=== PATIENT | female | born 1945 | race Asian ===

== ENCOUNTER 2018-10-20 09:01 | Day surgery (SDC) | payer MEDICARE, OTHER, SELFPAY ==
--- NOTE | 2018-10-17 13:14 | PM.PREOP ---
Pre-operative Note Interval Note History & Physical reviewed/Exam performed by Physician: Yes Changes to H&P: No
--- NOTE | 2018-10-17 13:14 | PM.OP.1 ---
Operative Date/Time/Diagnoses Date of procedure: 10/20/18 Time of procedure: 10:45 Procedure & Clinicians Procedure: Preoperative diagnoses:1. Complex surgery with use of capsular dye.2. Mature or advanced nuclear sclerotic and cortical cataract with poor visibility of the anterior capsule increasing surgical risks of complications.Preoperative diagnoses:1. Advanced to mature nuclear sclerotic and cortical cataract.Postoperative diagnoses 2. Glaucoma suspect. 1. Complex surgery with use of capsular dye and placement of a posterior chamber intraocular lens implant.Surgeon: Betty Cutler MD Complications: none Specimen: None Implant: ZCBOO +25.0Blood loss: None Anesthesia: Retrobulbar with monitored standby.Description of procedure:Dictated by: Betty Cutler MD Copy to: [facility] Postoperative diagnoses:1. Cataract removed with use of capsular dye with placement of a posterior chamber intraocular lens. Procedure: Phacoemulsification with posterior chamber intraocular lens implant Surgeon: Betty Cutler MD Blood loss: None Anesthesia: Retrobulbar with monitored standby. Description of procedure: Patient has presented with decreased vision due to cataract which is affecting activities of daily living. The patient wants surgery to improve vision. She is with advanced cortical cataract and poor red reflex. She is also a glaucoma suspect with a narrow anterior chamber and shorter axial length. She will need capsular dye to improve visibility. The patient was taken to the operating room and given IV sedation. A retrobulbar block consisting of 6 cc of 2% xylocaine without epinephrine mixed half and half with 0.5% Marcaine with 1 cc of hyaluronidase added is placed between the medial and lateral 1/3 of the inferior orbital rim. Lid akinesia is obtain with 1% xylocaine with epinephrine infiltrated along the lid margin. The eye is manually massaged for 30 sec, prepped using Betadine solution, and draped in the usual sterile fashion.Temporal approach was made, a 1 mm side-port incision was performed 90 degrees from the planned corneal wound. Phenylephrine 1.5% mixed with 1% xylocaine 0.2 cc was placed into the anterior chamber. An air bubble was placed and Visudyne dye was placed to improve visibility of the anterior capsule. The dye was irrigated out to reduce bubbles. Viscoat followed by Healon was then placed. A 2.6 mm clear incision with a 2.6 mm blade was placed. A 360 degree capsulorrhexis style capsulotomy was then performed with a cystitome needle on a [employer]. Hydrodelineation and hydrodissection were performed. The phacoemulsification unit is introduced, and sculpting used to groove the central lens. It is then removed in chopping mode. Epi nucleus is removed with epinuclear mode and irrigation aspiration was used to remove the peripheral cortex. The posterior capsule is polished. The intraocular lens is selected, inspected, power confirmed, and placed in the posterior chamber. The pupil was constricted with Miostat. The wound was stromally hydrated and tested for leaks, there was none and was left sutureless. Vigamox 0.1 cc was placed into the anterior chamber. Kenalog 0.2 cc was placed in the superior subconjunctival space. A drop of antibiotic and was placed and the eye was patched and shielded. The patient was stable and returned to the recovery room in excellent condition.Dictated by: CARISSA Napieropy to: [facility]
--- NOTE | 2018-10-17 13:21 | P.OP_ITS ---
Operative Date/Time/Diagnoses Date of procedure: 10/20/18 Time of procedure: 10:45 Procedure & Clinicians Procedure: Preoperative diagnoses:1. Complex surgery with use of capsular dye.2. Mature or advanced nuclear sclerotic and cortical cataract with poor visibility of the anterior capsule increasing surgical risks of complications.Preoperative diagnoses:1. Advanced to mature nuclear sclerotic and cortical cataract.Postoperative diagnoses 2. Glaucoma suspect. 1. Complex surgery with use of capsular dye and placement of a posterior chamber intraocular lens implant.Surgeon: Betty Cutler MD Complications: none Specimen : None Implant: ZCBOO +25.0Blood loss: None Anesthesia: Retrobulbar with monitored standby.Description of procedure:Dictated by: Betty Cutler MD Copy to : [facility] Postoperative diagnoses:1. Cataract removed with use of capsular dye with placement of a posterior chamber intraocular lens. Procedure: Phacoemulsification with posterior chamber intraocular lens implant Surgeon: Betty Cutler MD Blood loss: None Anesthesia : Retrobulbar with monitored standby. Description of procedure: Patient has presented with decreased vision due to cataract which is affecting activities of daily living. The patient wants surgery to improve vision. She is with advanced cortical cataract and poor red reflex. She is also a glaucoma suspect with a narrow anterior chamber and shorter axial length. She will need capsular dye to improve visibility. The patient was taken to the operating room and given IV sedation. A retrobulbar block consisting of 6 cc of 2% xylocaine without epinephrine mixed half and half with 0.5% Marcaine with 1 cc of hyaluronidase added is placed between the medial and lateral 1/3 of the inferior orbital rim. Lid akinesia is obtain with 1% xylocaine with epinephrine infiltrated along the lid margin. The eye is manually massaged for 30 sec, prepped using Betadine solution, and draped in the usual sterile fashion.Temporal approach was made, a 1 mm side-port incision was performed 90 degrees from the planned corneal wound. Phenylephrine 1.5% mixed with 1% xylocaine 0.2 cc was placed into the anterior chamber. An air bubble was placed and Visudyne dye was placed to improve visibility of the anterior capsule. The dye was irrigated out to reduce bubbles. Viscoat followed by Healon was then placed. A 2.6 mm clear incision with a 2.6 mm blade was placed. A 360 degree capsulorrhexis style capsulotomy was then performed with a cystitome needle on a [employer]. Hydrodelineation and hydrodissection were performed. The phacoemulsification unit is introduced, and sculpting used to groove the central lens. It is then removed in chopping mode. Epi nucleus is removed with epinuclear mode and irrigation aspiration was used to remove the peripheral cortex. The posterior capsule is polished. The intraocular lens is selected, inspected, power confirmed, and placed in the posterior chamber. The pupil was constricted with Miostat. The wound was stromally hydrated and tested for leaks , there was none and was left sutureless. Vigamox 0.1 cc was placed into the anterior chamber. Kenalog 0.2 cc was placed in the superior subconjunctival space. A drop of antibiotic and was placed and the eye was patched and shielded. The patient was stable and returned to the recovery room in excellent condition.Dictated by: CARISSA Napieropy to: [facility]
[2018-10-20] MEDS: PROPARACAINE 0.5% OPHTH SOL 2 DROPS EYE-OP (09:15)
[2018-10-20 09:20] VITALS: BP 140/81; PULSE 80; RESP 16; TEMP 36.6; O2SAT 98; BMI 27.2
[2018-10-20] MEDS: CATARACT EYE COMPOUND (10 DROPS/SYRINGE) 3 DROPS EYE-OP ×3 (09:20→09:30)
[2018-10-20] MEDS: BALANCED SALT IRRIG SOLN NO.2 15 ML IRR (11:10)
[2018-10-20] MEDS: CARBACHOL 1.5 ML VIAL INJ (11:10)
[2018-10-20] MEDS: HYALURONATE SODIUM 10 MG/ML SYRINGE INJ (11:10)
[2018-10-20] MEDS: CHONDROIDTIN/SOD HYALURONATE 1.05 ML SYRINGE INTRAOCULA (11:10)
[2018-10-20] MEDS: LIDOCAINE 1% W/EPI INJ 20 ML INJ (11:10)
[2018-10-20] MEDS: NEOMYCIN/POLY/DEX OPHTH OINT 1 APPLIC EYE-LEFT (11:11)
[2018-10-20] MEDS: MOXIFLOXACIN OPHTH DROPS 3 ML BOTTLE 2 DROPS INJ (11:11)
[2018-10-20] MEDS: OFLOXACIN 0.3% OPHTH 5 ML 2 DROPS EYE-LEFT (11:12)
[2018-10-20] MEDS: TRIAMCINOLONE 50 MG/5 ML VIAL INJ (11:12)
[2018-10-20] MEDS: PHENYLEPHRINE/LIDOCAINE VIAL (OR) 0.2 ML EYE-OP (11:12)
[2018-10-20] MEDS: TRYPAN BLUE 0.5 ML SYRINGE INJ (11:13)
[2018-10-20] MEDS: BALANCED SALT IRRIG SOLN NO.2 500 ML, EPINEPHrine 1 MG IRR (11:13)
[2018-10-20] MEDS: LIDOCAINE 2% 4 ML, BUPIVACAINE 0.5% (PF) 4 ML, HYALURONIDASE 150 UNIT INJ (11:15)
[2018-10-20 11:39] VITALS: BP 149/73; PULSE 69; RESP 15; TEMP 35.9; O2SAT 97
== END 2018-10-20 11:51 | disposition home or self-care (01) ==
PROVIDERS: Visit Provider Ophthalmology
PROC: (CPT 66982; principal; 2018-10-20 10:45)
DX: H25.12 Age-related nuclear cataract, left eye (principal); I10 Essential (primary) hypertension; E78.5 Hyperlipidemia, unspecified; H40.002 Preglaucoma, unspecified, left eye
CPT/HCPCS: 66982; J0171; J2250; J2704; J3010; J3301; J3470

== ENCOUNTER 2018-11-03 07:30 | Day surgery (SDC) | payer MEDICARE, OTHER, SELFPAY ==
--- NOTE | 2018-10-28 08:56 | PM.PREOP ---
Pre-operative Note Interval Note History & Physical reviewed/Exam performed by Physician: Yes Changes to H&P: No
--- NOTE | 2018-11-02 14:34 | PM.OP.1 ---
Operative Date/Time/Diagnoses Date of procedure: 11/03/18 Time of procedure: 08:45 Procedure & Clinicians Procedure: Preoperative diagnoses: 1. Complex surgery with use of capsular dye. 2. Mature or advanced nuclear sclerotic and cortical cataract with poor visibility of the anterior capsule increasing surgical risks of complications. Postoperative diagnoses: 1. Complex surgery with use of capsular dye and placement of a posterior chamber intraocular lens implant. Surgeon: Betty Cutler MD Complications: none Specimen: None Implant: ZCBOO+24.0 Blood loss: None Anesthesia: Retrobulbar with monitored standby. Description of procedure: Dictated by: Betyt Cutler MD Copy to: [facility] Post operative diagnoses: 1. Right advanced cataract removed with use of capsular dye with placement of a posterior chamber intraocular lens. Procedure: Phacoemulsification with posterior chamber intraocular lens implant Surgeon: Betty Cutler MD Blood loss: None Anesthesia: Retrobulbar with monitored standby Description of procedure: Patient has presented with decreased vision due to cataract which is affecting activities of daily living. The patient wants surgery to improve vision. Poor visibility was present due to cortical opacities through the visual axis and red reflex. The patient was taken to the operating room and given IV sedation. A retrobulbar block consisting of 6 cc of 2% xylocaine without epinephrine mixed half and half with 0.5% Marcaine with 1 cc of hyaluronidase added is placed between the medial and lateral 1/3 of the inferior orbital rim. Lid akinesia is obtain with 1% xylocaine with epinephrine infiltrated along the lid margin. The eye is manually massaged for 30 sec, prepped using Betadine solution, and draped in the usual sterile fashion. Temporal approach was made, a 1 mm side-port incision was performed 90 degrees from the planned corneal wound. Phenylephrine 1.5% mixed with 1% xylocaine 0.2 cc was placed into the anterior chamber. An air bubble was placed and Visudyne dye was placed to improve visibility of the anterior capsule. The dye was irrigated out to reduce bubbles. Viscoat followed by Rosangela was then placed. A 2.6 mm clear incision with a 2.6 mm blade was placed. A 360 degree capsulorrhexis style capsulotomy was then performed with a cystitome needle on a Healon. Hydrodelineation and hydrodissection were performed. The phacoemulsification unit is introduced, and sculpting used to groove the central lens. It is then removed in chopping mode. Epi nucleus is removed with epinuclear mode and irrigation aspiration was used to remove the peripheral cortex. The posterior capsule is polished. The intraocular lens is selected, inspected, power confirmed, and placed in the posterior chamber. The pupil was constricted with Miostat. The wound was stromally hydrated and tested for leaks, there was none and was left sutureless. Vigamox 0.1 cc was placed into the anterior chamber. Kenalog 0.2 cc was placed in the superior subconjunctival space. A drop of antibiotic and was placed and the eye was patched and shielded. The patient was stable and returned to the recovery room in excellent condition. Dictated by: Betty Cutler MD Copy to: [facility]
[2018-11-03 08:00] VITALS: BMI 27.0
[2018-11-03] MEDS: PROPARACAINE 0.5% OPHTH SOL 2 DROPS EYE-OP (08:00)
[2018-11-03] MEDS: CATARACT EYE COMPOUND (10 DROPS/SYRINGE) 3 DROPS EYE-OP ×2 (08:05→08:16)
[2018-11-03 08:13] VITALS: BP 159/77; PULSE 72; RESP 15; TEMP 36.1; O2SAT 97
[2018-11-03] MEDS: CARBACHOL 1.5 ML VIAL INJ (09:10)
[2018-11-03] MEDS: BALANCED SALT IRRIG SOLN NO.2 15 ML IRR (09:10)
[2018-11-03] MEDS: CHONDROIDTIN/SOD HYALURONATE 1.05 ML SYRINGE INTRAOCULA (09:10)
[2018-11-03] MEDS: MOXIFLOXACIN OPHTH DROPS 3 ML BOTTLE 2 DROPS INJ (09:11)
[2018-11-03] MEDS: HYALURONATE SODIUM 10 MG/ML SYRINGE INJ (09:11)
[2018-11-03] MEDS: LIDOCAINE 1% W/EPI INJ 20 ML INJ (09:11)
[2018-11-03] MEDS: PHENYLEPHRINE/LIDOCAINE VIAL (OR) 0.2 ML EYE-OP (09:12)
[2018-11-03] MEDS: OFLOXACIN 0.3% OPHTH 5 ML 2 DROPS EYE-RIGHT (09:12)
[2018-11-03] MEDS: NEOMYCIN/POLY/DEX OPHTH OINT 1 APPLIC EYE-RIGHT (09:12)
[2018-11-03] MEDS: TRIAMCINOLONE 50 MG/5 ML VIAL INJ (09:13)
[2018-11-03] MEDS: TRYPAN BLUE 0.5 ML SYRINGE INJ (09:13)
[2018-11-03] MEDS: BALANCED SALT IRRIG SOLN NO.2 500 ML, EPINEPHrine 1 MG IRR (09:17)
[2018-11-03] MEDS: LIDOCAINE 2% 4 ML, BUPIVACAINE 0.5% (PF) 4 ML, HYALURONIDASE 150 UNIT INJ (09:17)
[2018-11-03 09:34] VITALS: BP 124/75; PULSE 79; RESP 15; TEMP 36.3; O2SAT 93
== END 2018-11-03 09:44 | disposition home or self-care (01) ==
LOC: OR 07:32
PROVIDERS: PCP Nurse Practitioner Gerontology; Visit Provider Ophthalmology
PROC: (CPT 66982; principal; 2018-11-03 08:45)
DX: H25.11 Age-related nuclear cataract, right eye (principal); I10 Essential (primary) hypertension; E78.5 Hyperlipidemia, unspecified
CPT/HCPCS: 66982; J0171; J2250; J2704; J3010; J3301; J3470

== ENCOUNTER → 2021-12-19 08:42 | Outpatient (CLI) | payer MEDICARE, OTHER, SELFPAY ==
--- NOTE | 2021-12-19 | DI.MG.S_ITS ---
UNILATERAL LEFT DIGITAL DIAGNOSTIC MAMMOGRAM 3D/2D WITH ADDITIONAL VIEWS: 12/19/2021 CLINICAL: Additional evaluation requested from prior study. Comparison is made to exams dated: 10/21/2021 mammogram, 10/26/2013 mammogram, and 10/27/2012 mammogram - [facility]. The tissue of left breast is heterogeneously dense. This may lower the sensitivity of mammography. The previously seen asymmetry in the left breast disperses on spot compression views, compatible with normal fibroglandular breast tissue. No significant masses, calcifications, or other findings are seen in the breast. IMPRESSION: NEGATIVE There is no mammographic evidence of malignancy. Return to annual mammogram screening schedule is recommended. This exam was interpreted at Station ID: [id number]. NOTE: For mammograms, a report in lay terms will be sent to the patient. Approximately 15% of breast malignancies will not be visualized mammographically. In the management of a palpable breast mass, a negative mammogram must not discourage biopsy of a clinically suspicious lesion. Electronically Signed By: Anuel zhao/[email or web address]:12/19/2021 09:53:25 letter sent: Normal Exam ACR BI-RADS Category 1: Negative [id number]
== END ==
PROVIDERS: PCP Nurse Practitioner; Referring Provider Nurse Practitioner; Visit Provider Nurse Practitioner
DX: R92.8 Other abnormal and inconclusive findings on diagnostic imaging of breast (principal)
CPT/HCPCS: 77065; G0279

== ENCOUNTER → 2022-01-28 11:59 | Outpatient (CLI) | payer MEDICARE, OTHER, SELFPAY ==
--- NOTE | 2022-01-28 | DI.CT.S_ITS ---
PROCEDURE: CT ABDOMEN PELVIS WO/W CON INDICATIONS: Other microscopic hematuria TECHNIQUE: After the administration of oral contrast, 5 mm thick sections acquired from the diaphragms to the iliac crests. After the administration of intravenous contrast, 5 mm thick sections acquired from the diaphragms to the symphysis. 5 mm thick coronal and sagittal reformats were acquired. For radiation dose reduction, the following was used: automated exposure control, adjustment of mA and/or kV according to patient size. COMPARISON: None. FINDINGS: Image quality: Excellent. Lung bases: Lung bases are clear. Heart size is normal. Solid organs: Liver: The liver has no mass or intrahepatic biliary ductal dilatation. The portal vein and hepatic veins are patent. Biliary: Multiple tiny gallstones are seen. There is no wall thickening or pericholecystic fluid. Pancreas: The pancreas has no mass or ductal dilatation. There is no surrounding inflammation. Spleen: Normal size. There are no masses. Adrenals: No hypertrophy or nodules. Kidneys: No obstructive calculus or hydronephrosis. The left inferior pole has an millimeter cortical nodule has indeterminate density. Peritoneum and bowel: Small hiatal hernia. The small bowel has a normal caliber and appearance. The terminal ileum is normal. The large bowel has a normal caliber and appearance. The appendix is normal. No free fluid or air. Nodes and vessels: No retroperitoneal or mesenteric adenopathy by size criteria. Aorta and inferior vena cava are normal in size. Miscellaneous: No abdominal wall mass or hernia. PELVIS: Genitourinary: The bladder has no wall thickening or mass. No bladder calcifications. Bones: No suspicious bony lesions. Mild anterior height loss of L2. Facet arthrosis at L4-5 and L5-S1 with grade 1 anterolisthesis of L4-5. There is disc space narrowing and endplate degenerative changes at L5-S1. No vertebral body compression fractures. IMPRESSION: 1. No nephroureteral calculi. 2. 9 millimeter indeterminate nodule of the left lateral midpole consistent with a dense cyst or solid mass. Recommend ultrasound for further evaluation.. 3. No filling defects on delayed phase images. 4. Cholelithiasis without evidence of cholecystitis. Dictated by: John Martino M.D. on 01/28/2022 at 14:57 Approved by: John Martino M.D. on 01/28/2022 at 15:08
[2022-01-28 12:59] LABS: Estimated Glomerular Filt Rate > 60 mL/min (>60)
== END ==
PROVIDERS: PCP Nurse Practitioner; Referring Provider Urology; Visit Provider Urology
DX: R31.29 Other microscopic hematuria (principal); K80.20 Calculus of gallbladder without cholecystitis without obstruction; K44.9 Diaphragmatic hernia without obstruction or gangrene
CPT/HCPCS: 36415; 74178; 82565

== ENCOUNTER → 2024-08-02 12:24 | Outpatient (CLI) | payer MEDICARE, OTHER, SELFPAY ==
--- NOTE | 2024-08-02 12:26 | DI.US.S_ITS ---
PROCEDURE: US RENAL COMPLETE INDICATIONS: RENAL MASS TECHNIQUE: Real-time scanning was performed of the kidneys and bladder, with image documentation. COMPARISON: US, US RENAL COMPLETE, 12/11/2022, 15:57. US, US RENAL COMPLETE, 02/11/2022, 20:33. [facility], CT, CT ABDOMEN PELVIS WO/W CON, 01/28/2022, 13:09. US, US RENAL COMPLETE, 06/14/2023, 12:56. FINDINGS: Kidneys: Kidneys are normal in size. Right kidney measures 11.0 cm long; left kidney measures 11.4 cm long. Right renal cortical thickness is 1.6 cm; left renal cortical thickness is 1.5 cm. Renal cortical echotexture is normal. No hydronephrosis or nephrolithiasis. 1.3 x 1.0 x 1.4 cm isodense exophytic mass, compared to 1.2 x 1.4 x 0.9. No increased vascularity. Bladder: Pre-void bladder volume is 409 mL. Post-void residual is 0 mL. Pre-void images demonstrate no intraluminal masses or stones. On pre-void images, bilateral ureteral jets are noted with color Doppler interrogation. (Of note, ureteral jets may not be detectable in up to 25% of cases due to insufficient differences in specific gravity between ureteral and bladder urine). Miscellaneous: No free pelvic fluid. IMPRESSION: Relatively stable appearance of isodense exophytic mass compared to 2022. Given appearance however, renal cell carcinoma cannot be excluded. Dictated by: Ilsa Tran M.D. on 08/02/2024 at 20:04 Approved by: Ilsa Tran M.D. on 08/02/2024 at 20:07
== END ==
PROVIDERS: PCP Nurse Practitioner; Referring Provider Physician Assistant Medical; Visit Provider Physician Assistant Medical
DX: N28.89 Other specified disorders of kidney and ureter (principal)
CPT/HCPCS: 76770